=== PATIENT | female | born 1965 | race Caucasian/White ===

== ENCOUNTER → 2020-06-13 10:19 | Outpatient (CLI) | payer OTHER, SELFPAY ==
--- NOTE | ~2020-06-13 | MM_ITS ---
EXAMINATION: MM screening [facility] HISTORY: Screening mammogram TECHNIQUE: Craniocaudal and mediolateral oblique 3-D tomosynthesis images were obtained and synthetic 2-D images were generated. CAD analysis was submitted and interpreted. COMPARISON: 07/23/2018, 04/14/2015, 01/01/2013 BREAST PARENCHYMAL COMPOSITION: There are scattered areas of fibroglandular density. FINDINGS: A stable mass of the inner right breast is consistent with a benign finding. There is no ev idence of suspicious mass, calcification, or architectural distortion to suggest malignancy in either breast. There has been no suspicious interval change. IMPRESSION: 1. No mammographic evidence of malignancy. 2. Recommend routine screening mammography in one year. BI-RADS Category 2: Benign finding(s). Reviewed, dictated and finalized at location A.
== END ==
PROVIDERS: PCP Family Medicine; Visit Provider Obstetrics & Gynecology
DX: Z12.31 Encounter for screening mammogram for malignant neoplasm of breast (principal)
CPT/HCPCS: 77063; 77067

== ENCOUNTER → 2021-07-27 16:44 | Outpatient (CLI) | payer OTHER, SELFPAY ==
--- NOTE | ~2021-07-27 | MM_ITS ---
EXAMINATION: MM screening [facility] HISTORY: Screening mammogram TECHNIQUE: Craniocaudal and mediolateral oblique 3-D tomosynthesis images were obtained and synthetic 2-D images were generated. CAD analysis was submitted and interpreted. COMPARISON: 06/13/2020, 07/23/2018, 04/14/2015 bilateral screening mammogram examinations BREAST PARENCHYMAL COMPOSITION: There are scattered areas of fibroglandular density. FINDINGS: Stable approximately 6 x 9.9 mm opacity is noted in the inner mid right breast. There is no evidence of suspicious mass, calcification, or architectural distortion to suggest malignancy in eit her breast. There has been no suspicious interval change. Multiple bilateral scattered punctate benign microcalcifications are again noted. No suspicious mass or architectural distortion, malignant calcification, skin thickening or retractio n or significant new or developing density is detected. IMPRESSION: 1. No mammographic evidence of malignancy. 2. Recommend routine screening mammography in one year. BI-RADS Category 2: Benign finding(s). Reviewed, dictated and finalized at location A.
== END ==
PROVIDERS: PCP Family Medicine; Visit Provider Nurse Practitioner
DX: Z12.31 Encounter for screening mammogram for malignant neoplasm of breast (principal)
CPT/HCPCS: 77063; 77067

== ENCOUNTER → 2022-10-21 13:09 | Outpatient (CLI) | payer OTHER, SELFPAY ==
--- NOTE | ~2022-10-21 | MM_ITS ---
EXAMINATION: MM screening [facility] HISTORY: Screening mammogram TECHNIQUE: Craniocaudal and mediolateral oblique 3-D tomosynthesis images were obtained and synthetic 2-D images were generated. CAD analysis was submitted and interpreted. COMPARISON: 07/27/2021, 06/13/2020, 07/23/2018 BREAST PARENCHYMAL COMPOSITION: There are scattered areas of fibroglandular density. FINDINGS: Again noted is a stable mass of the inner right breast, consistent with a benign finding. N o suspicious mass, calcification, or architectural distortion are identified in either breast to sugg est malignancy. There has been no suspicious interval change. IMPRESSION: 1. No mammographic evidence of malignancy. 2. Recommend routine screening mammography in one year. BI-RADS Category 2: Benign finding(s). Reviewed, dictated and finalized at location A.
--- NOTE | ~2022-10-21 | DEXA_ITS ---
Bone Density Report Name: BAUDILIO CASTELLANOS Age: 56 Sex: Female Ethnicity: White Date of : 1965 Indication: postmenopausal; screening for osteoporosis; Referring Provider: ANDERSON, JACQUELINE Study: Bone densitometry was performed. Exam Date: October 21, 2022 Accession number: [id number] Bone Density: Region BMD T-score Z-score Classification AP Spine (L1-L4) 0.968 -0.7 0.4 Normal Femoral Neck (Left) 0.676 -1.6 -0.5 Osteopenia Total Hip (Left) 0.929 -0.1 0.6 Normal Femoral Neck (Right) 0.691 -1.4 -0.3 Osteopenia Total Hip (Right) 0.909 -0.3 0.4 Normal Total Hip Mean 0.919 -0.2 0.5 Normal World Health Organization criteria for BMD impression classify patients as: Normal (T-score at or above -1.0), Osteopenia (T-score between -1.0 and -2.5), or Osteoporosis (T-score at or below -2.5). 10-year Fracture Risk(1): Major Osteoporotic Fracture 6.5% Hip Fracture 0.5% Reported Risk Factors: [place] (), Neck BMD=0.676, BMI=34.4 (1) FRAX(R) Version 3.08. Fracture probability calculated for an untreated patient. Fracture probability may be lower if the patient has received treatment. Clinical Information Provided by Patient: Patient maximum height was 63.0 Menopause Age: 53 Drinks caffeinated beverages Onset of menses at age 11 Number of children 2 Impression: The patient has low bone mass, based on the Left Femoral Neck T-score. The patient has an estimated ten-year risk of hip fracture of 0.5% and an estimated ten-year risk of major fracture of 6.5%, based on the WHO FRAX algorithm. Discussion: BONE DENSITY IS LOW AT ONE OR MORE SKELETAL SITES. This patient's lowest T-score is low at one or more skeletal sites. It meets the World Health Organization's (WHO) criteria for ?low bone mass? (T-score between -1.0 and -2.5). The patient's 10-year risk of fracture as calculated by FRAX is less than the threshold where pharmacological therapy is recommended by the National Osteoporosis Foundation (NOF). However, all treatment decisions require clinical judgment and consideration of individual patient factors, including patient preferences, comorbidities, previous drug use, risk factors not captured in the FRAX model (e.g., frailty, falls, vitamin D deficiency, increased bone turnover, interval significant decline in bone density) and possible under or overestimation of fracture risk by FRAX. The patient should follow a healthful lifestyle (good nutrition with adequate calcium and vitamin D, and appropriate weight-bearing exercise). Follow-Up: Consider repeating this study in 2 to 3 years to reassess this patient's status, or sooner if there is some new clinical indication. Reported by: [facility] on 10/21/2022 1:34:00 PM. Reviewed, dictated and fi
== END ==
PROVIDERS: PCP Obstetrics & Gynecology Gynecology; Visit Provider Nurse Practitioner
DX: Z12.31 Encounter for screening mammogram for malignant neoplasm of breast (principal); M85.9 Disorder of bone density and structure, unspecified; Z78.0 Asymptomatic menopausal state
CPT/HCPCS: 77063; 77067; 77080